=== PATIENT | female | born 2000 | race Hispanic/Latino ===

== ENCOUNTER 2021-09-27 13:02 | Emergency (ER) | payer BC, MEDICAID ==
[~2021-09-27] VITALS: Ht 160 cm; Wt 59.9 kg
[2021-09-27] MEDS ORDERED: LIDOCAINE HCL 400MG/20ML VIAL ONE (13:22)
[2021-09-27] MEDS ORDERED: TETANUS/DIPHTHERIA TOXOID [ADULT] 0.5 ML VIAL IM ONE (13:30)
[2021-09-27] MEDS ORDERED: ACETAMINOPHEN 500 MG TABLET PO ONE (13:30)
[2021-09-27] MEDS ORDERED: NEOM28.36 TP (13:41)
[2021-09-27 14:24] VITALS: BP 108/72
== END 2021-09-27 14:43 | disposition home or self-care (01) ==
LOC: EDH 13:02
DX: S81.812A Laceration without foreign body, left lower leg, initial encounter (principal); Z88.1 Allergy status to other antibiotic agents; X58.XXXA Exposure to other specified factors, initial encounter; Y93.89 Activity, other specified; Y92.89 Other specified places as the place of occurrence of the external cause; Y99.8 Other external cause status
CPT/HCPCS: 12002; 90471; 90714; 99284; J3490; 12014